=== PATIENT | female | born 1945 | race Caucasian/White ===

== ENCOUNTER → 2017-01-29 | Outpatient (CLI) | payer MEDICARE, BC ==
[~2017-01-29] MED LIST: AMLO5TAB66 PO; DIPH25CA84 PO; FEXO180T56 PO; IBUP-1324 PO; LEVO125T70 PO
--- NOTE | 2017-01-29 13:05 | DI ---
Indication: ITS.REASON: M25.561 Pain in right knee; M25.562 Pain in left knee PROCEDURE: KNEE BILAT 3 VIEWS: Encounter: Initial Comparison: None Findings: Right knee: No acute fracture or dislocation. Mild medial compartment joint space narrowing with osteophyte formation. No joint effusion. Patellofemoral compartment osteophytes. Loose body in the anterior joint recess. Mild patellofemoral compartment joint space loss. Left knee: No acute fracture or dislocation. Mild to moderate medial compartment joint space narrowing with tricompartmental osteophyte formation. No joint effusion. Impression: Right knee: Mild osteoarthritis. Left knee: Mild to moderate osteoarthritis. .
== END ==
LOC: IMA 11:35
PROVIDERS: ATTEND Family Medicine
DX: M17.0 Bilateral primary osteoarthritis of knee (principal); M25.561 Pain in right knee; M25.562 Pain in left knee

== ENCOUNTER 2017-08-13 06:51 | Inpatient (IN) ==
[~2017-08-13 06:51] MED LIST changes: +ACETAMINOPHEN 500 MG TABLET PO ONE; -AMLO5TAB66 PO; +DEXAMETHASONE 4 MG/ML INJECTION IVP ONE; -DIPH25CA84 PO; +FAMOTIDINE PB 20 MG/50 ML BAG IV ONE; -FEXO180T56 PO; -IBUP-1324 PO; -LEVO125T70 PO; +LIDOCAINE 1% (10mg/ml) 2mL INJ PF SDV ID ONE; +METOCLOPRAMIDE 10mg/2ml INJECTION IVP ONE; +NOZIN NASAL SWAB NAS ONE; +NS 1,000 ML IV SCH; +ONDANSETRON 4 MG/2 ML INJECTION IVP ONE; +TRANEXAMIC ACID 1,000 MG in NS 100 ML IV ONE
[2017-08-13] MEDS ORDERED: TRANEXAMIC ACID 1,000 MG in NS 100 ML IV ONE (07:00)
[2017-08-13 07:08] VITALS: BMI 29.0
[2017-08-13] MEDS ORDERED: EPINEPHrine 0.25 MG, BUPIVACAINE 0.25% PF 30 ML, MORPHINE SULFATE 15 MG, KETOROLAC INJ ... OPSITE ONE (08:00)
--- NOTE | 2017-08-13 08:42 | Anesthesia Preoperative Report ---
Anesthesia Preoperative Record - Date and Time Date: 08/13/17 Preoperative Diagnosis: RT TKA M17.11 NPO Since Date: 08/12/17 NPO Since Time: 18:30 Allergies/Adverse Reactions: Allergies Allergy/AdvReac Type Severity Reaction Status Date / Time procaine Allergy Mild fingers Verified 08/13/17 07:18 numb lisinopril AdvReac Mild cough Verified 08/13/17 07:18 meperidine AdvReac Mild n&v Verified 08/13/17 07:18 propoxyphene AdvReac Mild N&V Verified 08/13/17 07:18 codeine AdvReac Unknown hyperactive Verified 08/13/17 07:18 ether Allergy Severe heart stops Uncoded 08/13/17 07:18 BANANAS AdvReac Mild CAUSES Uncoded 08/13/17 07:18 VOMITING - Vital Signs Vital Signs: Temperature 98.4 F 08/13/17 07:08 Pulse Rate 65 08/13/17 07:08 Respiratory Rate 19 08/13/17 07:08 Blood Pressure 204/86 H 08/13/17 07:08 Pulse Oximetry 95 08/13/17 07:08 Height and Weight: Height 1.69 m Weight 83 kg Body Mass Index 29.0 - Medications Inpatient Medications: Current Medications Cefazolin Sodium (Kefzol) 2 g IVP PREOP ONE Stop: 08/13/17 09:31 Sodium Chloride (Normal Saline) 1,000 mls @ 50 mls/hr IV .Q20H THO Last Admin: 08/13/17 07:30 Dose: 50 mls/hr Epinephrine HCl 0.25 mg/Bupivacaine HCl 30 ml/Morphine Sulfate 15 mg/Ketorolac Tromethamine 60 mg/Sodium Chloride 65.25 mls @ 1 mls/hr OPSITE INTRAOP ONE PRN Reason: Protocol Stop: 08/16/17 01:14 Sodium Chloride (Iv Flush) 10 - 80 ml IV PRN PRN PRN Reason: Flushing Home Medications: Home Medications Medication Instructions Recorded Confirmed Type Amlodipine Besylate 5 mg PO DAILY #0 03/08/09 08/13/17 History Ibuprofen [Motrin Ib] 200 - 600 mg PO Q6H PRN #0 03/08/09 08/13/17 History Aspirin/Acetaminophen/Caffeine 2 each PO BID PRN 07/15/17 08/13/17 History [Excedrin Migraine Caplet] Fexofenadine [Clarisa] 180 mg PO DAILY 07/15/17 08/13/17 History Glucosa Stacy 2Kcl/Chondroitin Stacy 1 each PO DAILY 07/15/17 08/13/17 History [Glucosamine Chondroitin Caplet] ascorbic acid (vitamin C) ER 500 500 mg PO DAILY cap 07/15/17 08/13/17 History mg capsule,extended release levothyroxine 125 mcg tablet 125 mcg PO DAILY tab 07/15/17 08/13/17 History multivitamin tablet 1 tab PO DAILY tab 07/15/17 08/13/17 History omega-3 fatty acids 1,000 mg 1,000 mg PO DAILY 07/15/17 08/13/17 History capsule Is Patient on Beta Jake?: No - Medical History Cardiovascular: Reports: Hypertension Neuro/Musculoskeletal: Reports: Headaches (migraines) - Surgical History HEENT Surgeries: Reports: Tonsillectomy (attempted as child, aborted because she coded-ether), Other (xray therapy to neck to treat tonsilitis) Endocrine Surgery/Treatments: Reports: Thyroidectomy (and parathyroidectomy for CA) GI Surgery/Treatments: Reports: Colonoscopy (polyps) Anesthesia Reactions: Other (Alzheimer like symptom for a few weeks after colonoscopy) Hx Family Anesthesia Reaction: No History of Motion Sickness: No - Social History Smoking Status: Never smoker Hx Chewing Tobacco Use: No Second Hand Exposure: No Substance Use Type: does not use Alcohol Intake Frequency: does not drink - Pertinent Findings Laboratory: CBC and BMP 08/13/17 07:17 BMP 08/13/17 07:17 Sodium 144 Potassium 4.3 Chloride 109 H Carbon Dioxide 24 BUN 21.0 H Creatinine 1.0 Glucose 99 Calcium 10.1 EKG: Sinus Rhythm - Physical Exam Respiratory Exam: Present: lungs clear Cardiovascular Exam: Present: regular rate and rhythm - Airway Assessment Mallampati Score: II TMD: 3 Fingerbreadths Neck Extension: fair Teeth: other (poor mouth opening. Stated problems opening mouth d/t jaw problems on left. Has locked up before. ) Overall Assessment: other (poor mouth opening.) - ASA ASA Score: 2 - Plan Plan: SAB vs GA with adductor canal block Anesthesia: General TIVA, General Inhalation Gases, Neuroaxial Peripheral Nerve Block: Saphenous-Right - Discussion Discussion: Discussed risks/options/alternatives of anesthesia and questions answered. Patient consents. Nursing pain assessment noted. Attestation Statement: Prior to the delivery of any anesthetic medication, I examined the patient, developed the plan, obtained the patient's consent and discussed the risk and benefits of the procedure with the patient/guardian. - Additional Information Seen by Anesthesia: Yes
[2017-08-13] MEDS ORDERED: PROPOFOL 500 MG/50 ML VIAL IV ONE ×2 (08:51→10:55)
[2017-08-13] MEDS ORDERED: FentaNYL 100 MCG/2 ML INJECTION ONE (08:51)
[2017-08-13] MEDS ORDERED: MIDAZOLAM 2mg/2ml INJECTION ONE (08:51)
[2017-08-13] MEDS ORDERED: VANCOMYCIN 1,000 MG INJECTION ONE (09:06)
[2017-08-13] MEDS ORDERED: SALINE FLUSH 10ml SYRINGE ONE (09:27)
[2017-08-13] MEDS ORDERED: CEFAZOLIN 1 G INJECTION IVP ONE (09:30)
[2017-08-13] MEDS ORDERED: HYDROMORPHONE 2 MG/ML INJECTION IVP PRN (10:08)
[2017-08-13] MEDS ORDERED: ONDANSETRON 4 MG/2 ML INJECTION IVP PRN ×2 (10:08→12:11)
[2017-08-13] MEDS ORDERED: ROPIVACAINE 0.5% (5mg/ml) 30ml INJ ONE (10:09)
[2017-08-13] MEDS ORDERED: LR 1,000 ML IV SCH (10:15)
[2017-08-13] MEDS ORDERED: VANCOMYCIN 1,000 MG INJECTION IAR ONE (10:50)
--- NOTE | 2017-08-13 11:02 | Operative Note ---
- Procedure Preoperative Diagnosis: Right knee primary degenerative joint disease Postoperative Diagnosis: Same as preoperative diagnosis. Surgeon: Seamus Moon MD Street Roller Engineer: Jono White Complications: None. Anesthesia: Spinal. Estimated Blood Loss: See Anesthesia Record. Fluids: Please see Anesthesia Record. Description of Procedure: Mrs. Ramsey and her right knee were identified and marked in the preoperative holding area. She was brought back to the operating suite after a saphenous nerve block was placed in the preoperative holding area. Spinal anesthetic was administered and she was placed supine on the operating table. The right lower extremity was prepped and draped in my normal sterile fashion. Timeout was performed. The nvite robot was used during the surgery. She had a correctable varus deformity with no flexion contracture. A standard anterior midline incision followed by medial parapatellar arthrotomy was performed. Anterior fat pad and meniscus were removed. The patella was resurfaced to a size 29. She had significant arthritic changes in both patellofemoral and the medial compartment. A tibial array was placed in the most inferior aspect of the incision medial to the tubercle. I then placed a second femoral array again using bicortical pins in the distal femoral metaphysis medially. Checkpoints were then placed both in the femur and the tibia. The bone was then registered with the nvite robot. Osteophytes were removed and gaps were captured both 90 and 0 with correction. She hyperextended it was loose in extension according to the software so we dropped the femur distally 3 mm. We internally rotated the femur 1 was still 4 external rotated compared to the posterior condylar axis. This gave her 80 mm gaps throughout. The nvite robotic arm was then used to assist with the bone cuts. Posterior osteophytes and remaining meniscus were removed. Trial components were placed. We used a 4 femur and a 3 tibia with a allowed mm spacer. She tracked well and was well balanced throughout range of motion. The leg was exsanguinated and the tourniquet inflated to 250 mmHg. The bone was prepared for cementing and components were cemented into place and allowed to cure in extension. The tourniquet was let down and hemostasis obtained with electrocautery. The knee was ranged one more time to ensure good stability, balance and patellar tracking. 1 g of vancomycin powder was then placed into the knee joint. The capsulotomy was then closed with #1 Vicryl. I then left my actuarial assistant to close the subcutaneous tissue with 2-0 Vicryl. Running 4-0 Monocryl will be used in the subcuticular layer. Dermabond will be used on the skin followed by sterile dressing. After drapes are removed patient will be taken to recovery room under the care of anesthesia.
--- NOTE | 2017-08-13 11:43 | Anesthesia Procedure Note ---
Peripheral Nerve Blockade - Procedure Physician: Kehinde Moon MD Date: 08/13/17 Discussion: Discussed risks/options/alternatives of anesthesia and questions answered. Patient consents. Nursing pain assessment noted. Block Start: 11:36 Block Stop: 11:37 Blocked Employed: Adductor Canal, Single Injection Indication: Post-Operative Pain Approach: Right Side Confirmed Position: Supine Patient: Consent, Risks/Benefits Discussed, Informed IV Sedation: No (post op) Initial Vital Signs: Temperature 98.4 F 08/13/17 07:08 Temperature Source Oral 08/13/17 07:08 Pulse Rate 65 08/13/17 07:08 Respiratory Rate 19 08/13/17 07:08 Blood Pressure 204/86 H 08/13/17 07:08 Blood Pressure Mean 125 08/13/17 07:08 Blood Pressure Position Sitting 08/13/17 07:08 Pulse Oximetry 95 08/13/17 07:08 Oxygen Delivery Method 08/13/17 07:08 Post Vital Signs: Temperature 98.4 F 08/13/17 07:08 Pulse Rate 65 08/13/17 07:08 Respiratory Rate 19 08/13/17 07:08 Blood Pressure 204/86 H 08/13/17 07:08 Pulse Oximetry 95 08/13/17 07:08 Prep: Chlorhexadine/ETOH, Sterile Technique Ultrasound Used?: Yes - Nerve Simulator Needle Depth: 3 Muscle Response: No - Injectate Ropivacaine (%): 0.5 Ropivacaine (mL): 15 Was Epi 1:200,000 Used?: No Injection: Injection made incrementally with constant monitoring and aspiration every 5 ml
--- NOTE | 2017-08-13 11:58 | Anesthesia Postoperative Note ---
- Date and Time Date: 08/13/17 Time: 11:58 - Status Patient Participated in Evaluation: Patient Participated in Person Vital Signs: Temperature 97 F 08/13/17 11:30 Pulse Rate 53 L 08/13/17 11:55 Respiratory Rate 18 08/13/17 11:55 Blood Pressure 138/65 08/13/17 11:55 Pulse Oximetry 98 08/13/17 11:55 Respiratory Function: Airway Patent, Regular Respirations Cardiovascular Function: Regular Pulse Mental Status: Alert and Oriented Pain Intensity: 0 Hydration: IV Infusing Complications During Recover: None Apparent Post Anesthesia Care Notes: moves lower extremeties - Follow-Up Instructions Instructions: Per Surgeon
[2017-08-13] MEDS ORDERED: NOZIN NASAL SWAB NAS ONE (12:11)
[2017-08-13] MEDS ORDERED: LORazepam 1 MG TABLET PO PRN (12:11)
[2017-08-13] MEDS ORDERED: DiphenhydrAMINE 25 MG CAPSULE PO PRN (12:11)
[2017-08-13] MEDS ORDERED: DiphenhydrAMINE 50 MG/ML INJECTION IVP PRN (12:11)
[2017-08-13] MEDS: AMLODIPINE 5 MG TABLET PO SCH (12:13)
[2017-08-13] MEDS: FEXOFENADINE 180 MG TABLET PO SCH (12:13)
[2017-08-13] MEDS: LEVOTHYROXINE 125 MCG TABLET PO SCH (12:14)
[2017-08-13] MEDS: POLYETHYL GLYCOL 3350 17gm PACKET PO SCH (12:18)
[2017-08-13] MEDS: DOCUSATE SODIUM 100 MG CAPSULE PO SCH ×2 (12:24→21:15)
[2017-08-13] MEDS: ACETAMINOPHEN 325 MG TABLET PO SCH ×4 (12:24→21:14)
[2017-08-13] MEDS: NS 1,000 ML IV SCH (12:24)
--- NOTE | 2017-08-13 12:34 | XRay Report ---
Indication: postoperative image PROCEDURE: XR knee RT 2V: Encounter: Initial Comparison: CT dated July 23, 2017 Findings: Postoperative changes of right total knee replacement are seen. There is expected postoperative subcutaneous gas. No evidence of hardware failure or acute fracture. No retained radiopaque surgical instruments or sponges. Overlying material causing artifact. Impression: New right total knee prosthesis without evidence of immediate complication. .
[2017-08-13] MEDS ORDERED: FALL RISK - PHARMACY CONSULT MC ONE (12:41)
[2017-08-13] MEDS: ASCORBIC ACID 500 MG TABLET PO SCH (13:18)
[2017-08-13] MEDS: OMEGA-3 ACID ESTERS 1 GM CAPSULE PO SCH (13:18)
[2017-08-13] MEDS: NOZIN NASAL SWAB NAS SCH ×2 (13:19→21:14)
[2017-08-13] MEDS: TRAMADOL 50 MG TABLET PO PRN (14:54)
[2017-08-13] MEDS ORDERED: INFLUENZA VAC High Dose 2017-18 (Fluzone HD*) (>=65yo) 0.5ml IM ONE (15:38)
[2017-08-13] MEDS ORDERED: INFLUENZA VAC. INJ. ADMIN CHARGE INJ ONE (16:00)
[2017-08-13] MEDS ORDERED: SALINE FLUSH 10ml SYRINGE IV PRN (16:19)
[2017-08-13] MEDS: CEFAZOLIN 2 G in NS 100 ML IV SCH (16:48)
--- NOTE | 2017-08-13 18:18 | Consult Note ---
<Marleni Morris - Last Filed: 08/13/17 18:13> Consult Information - Data of Consult Consult date: 08/13/17 Requesting Physician: Kehinde Moon MD Primary Care Provider: Samina Huston DO Family Provider: Samina Huston DO - Consult Narrative Reason for consult: Hypertension, S/P rigth TKA History of present illness: Alisa Ramsey is a very pleasant 72-year-old female with a history of right knee pain, degenerative joint disease and osteoarthritis underwent an elective right total knee arthroplasty by Dr. Moon today, 08/13/17. Following the surgery, she was noted to be hypertensive with an average systolic blood pressure in the 170's. She has a known history of hypertension for which she takes amlodipine 5mg daily. She reports that she took her medication as directed this morning prior to surgery. Review of vital signs reveals current blood pressure of 179/75 and afebrile. Heart rate has been primarily bradycardiac, between 43-75. She admits to a history of "low heart rate", typically in the low 60's. Currently she admits to right knee pain at 2/10. She denies any other complaints or concerns. No chest pain, shortness of breath , abdominal pain, nausea, vomiting, dysuria, headache or changes in vision. She denies any recent illness or fevers. She states that her blood pressure is usually very well controlled with her medication. She does admit that in the past, during a period of increased stress, her PCP, Dr. Wheeler, had encouraged her to take amlodipine 5mg in the morning and amlodipine 2.5mg in the evening but since the resolution of her "stress" she has only been taking her amlodipine 5mg in the AM and was obtaining good blood pressure control. She does have a past history of reactions to anesthesia including "brain fog" following her colonoscopy in 2011. Due to her persistent hypertension, the hospitalist service was consulted for medical management and further evaluation and treatment. On exam, she is seen while resting in bed, with her daughter and at the bed side. She is alert and orientated x 3 and in no apparent distress. Cardiac exam reveals bradycardia with regular rate and rhythm. Lungs are clear to auscultation. Abdomen is soft, nontender with active bowel sounds. She admits to passing gas since the surgery. Trace edema noted to bilateral lower extremities. SCDs in place bilaterally. Polar ice-pack noted to right knee and was not removed for evaluation of surgical site. [facility] Patient Stated Medical History Hypertension. Secondary hypothyroid due to previous thyroid cancer and thyroidectomy. History of migraines. Seasonal allergic rhinitis. Diverticulosis. History of anemia as a child. Osteoarthritis. Degenerative joint disease. Prior reaction to anesthesia. Surgical History: Colonoscopy with polypectomy and diverticulosis noted - 2008. EGD - 2008. Attempted tonsillectomy - ether was used for anesthesia causing patient's heart to stop as a result of that ether anesthetic. The operation was cancelled when this occurred. 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 The patient states that she did have x-ray treatment of her tonsils as a child which was thought to have led to the thyroid carcinoma - 04/23/1978 (Dr. Powers). Family History: Family History Mother Thyroid disease Stroke Heart attack Diabetes COPD (chronic obstructive pulmonary disease) Arthritis Maternal Grandmother Stroke Paternal Grandmother Colon cancer Father Enlarged heart. - Social History Smoking status: Never smoker Substance use type: does not use Alcohol intake frequency: does not drink Housing: house Household members: spouse service: No Current occupational status: retired Does patient use chewing tobacco?: No Current residence: Apartment/Private Home Social history: PCP - Dr. Wheeler. Review of Systems All systems PM: 10-point ROS was reviewed, no additional remarkable complaints except - Constitutional Constitutional: Absent: chills, fatigue, fever(s), headache(s), weakness - EENMT Eyes: Absent: blurry vision, change in vision, loss of vision, photophobia Ears: Absent: ear pain Balance: Absent: vertigo, falling to one side Nose: Absent: nosebleeds Mouth/Throat: Absent: sore throat, changes in swallowing - Cardiovascular Cardiovascular: Absent: chest pain, palpitations, syncope, dyspnea on exertion, orthopnea, edema Vascular: Absent: pedal edema - Respiratory Respiratory: Absent: cough, dyspnea, hemoptysis, dyspnea on exertion, wheezing, pain on inspiration - Gastrointestinal Gastrointestinal: Absent: abdominal pain, constipation, diarrhea, hematochezia, melena, nausea, vomiting - Genitourinary Genitourinary: Absent: abnormal menses, dysuria, hematuria Menstruation: post menopausal - Musculoskeletal Musculoskeletal: Present: limited range of motion (right knee secondary to recent surgery and pain.). Absent: back pain, deformity, muscle weakness - Integumentary/Breasts Integumentary: Absent: erythema, rash, jaundice - Neurological Neurological: Absent: confusion, convulsions, dizziness, focal weakness, headache(s), lack of coordination, memory loss, weakness - Psychiatric Psychiatric: Present: anxiety (white coat syndrome) - Endocrine Endocrine: Absent: palpitations - Hematologic/Lymphatic Hematologic/Lymphatic: Absent: easy bruising - Allergic/Immunologic Allergic/Immunologic: Present: seasonal rhinorrhea Medications Home Medications Medication Instructions Recorded Confirmed Type Amlodipine Besylate 5 mg PO DAILY #0 03/08/09 08/13/17 History Ibuprofen [Motrin Ib] 200 - 600 mg PO Q6H PRN #0 03/08/09 08/13/17 History Aspirin/Acetaminophen/Caffeine 2 each PO BID PRN 07/15/17 08/13/17 History [Excedrin Migraine Caplet] Fexofenadine [Clarisa] 180 mg PO DAILY 07/15/17 08/13/17 History Glucosa Stacy 2Kcl/Chondroitin Stacy 1 each PO DAILY 07/15/17 08/13/17 History [Glucosamine Chondroitin Caplet] ascorbic acid (vitamin C) ER 500 500 mg PO DAILY cap 07/15/17 08/13/17 History mg capsule,extended release levothyroxine 125 mcg tablet 125 mcg PO DAILY tab 07/15/17 08/13/17 History multivitamin tablet 1 tab PO DAILY tab 07/15/17 08/13/17 History omega-3 fatty acids 1,000 mg 1,000 mg PO DAILY 07/15/17 08/13/17 History capsule Allergies Allergy/AdvReac Type Severity Reaction Status Date / Time procaine Allergy Mild fingers Verified 08/13/17 07:18 numb lisinopril AdvReac Mild cough Verified 08/13/17 07:18 meperidine AdvReac Mild n&v Verified 08/13/17 07:18 propoxyphene AdvReac Mild N&V Verified 08/13/17 07:18 codeine AdvReac Unknown hyperactive Verified 08/13/17 07:18 ether Allergy Severe heart stops Uncoded 08/13/17 07:18 BANANAS AdvReac Mild CAUSES Uncoded 08/13/17 07:18 VOMITING Exam Vital Signs: Temperature 97.8 F 08/13/17 12:12 Pulse Rate 57 L 08/13/17 17:56 Respiratory Rate 14 08/13/17 12:51 Blood Pressure 183/82 H 08/13/17 17:43 Pulse Oximetry 99 08/13/17 17:43 Telemetry Rhythm: Sinus Rhythm Height/Weight/BMI: Height 5 ft 6.5 in Weight 182 lb 15.739 oz Body Mass Index 29.0 - Constitutional Present: no acute distress, well nourished, well developed, obese, cooperative - Routine HEENT Exam Head: Present: normocephalic, atraumatic Eye: Present: PERRL. Absent: conjunctival icterus ENT: Present: mucous membranes moist, dentition normal - Routine Neck Exam Present: supple, full ROM, trachea midline - Routine Chest/Breast/Axilla Exam Chest wall: Absent: pacemaker - Routine Respiratory Exam Present: CTA bilaterally. Absent: dyspnea, rhonchi, stridor, wheezes, crackles - Routine Cardiovascular Exam Present: RRR, S1, S2, bradycardia - Routine Abdominal Exam Present: soft, normoactive bowel sounds, non distended, non tender - Routine Extremities Exam Present: edema (trace bilateral lower extremities), pulses intact. Absent: calf tenderness Comments: polar pack noted to right knee; SCDs in place bilaterally. - Routine Back/Spine/Pelvis Exam Back/Spine: Present: full ROM - Routine Skin Exam Present: dry, warm. Absent: jaundice Comments: afebrile. - Routine Neurological Exam Present: alert, oriented X3, CN II-XII intact, moving all extremities, hearing grossly intact, normal speech. Absent: hemineglect, facial asymmetry - Routine Psychiatric Exam Present: normal affect, cooperative, good insight, good judgment Results - Labs CBC & Chem 7: 08/13/17 07:17 - Impressions Date of Exam: 08/13/17 Indication: postoperative image Findings: Postoperative changes of right total knee replacement are seen. There is expected postoperative subcutaneous gas. No evidence of hardware failure or acute fracture. No retained radiopaque surgical instruments or sponges. Overlying material causing artifact. Impression: New right total knee prosthesis without evidence of immediate complication. Assessment and Plan (1) Status post total knee replacement, right Current visit: Yes Status: Acute Right TKA by Dr. Moon on 08/13/17. (2) Hypertension Current visit: No Status: Chronic (3) Chronic renal disease, stage 3, moderately decreased glomerular filtration rate between 30-59 mL/min/1.73 square meter Current visit: Yes Status: Chronic GFR 54 on 08/13/17. (4) Seasonal allergic rhinitis Current visit: Yes Status: Chronic DVT Prophylaxis: SCD's GI Prophylaxis: Protonix Resuscitation Status: Full Code Assessment and Plan: 72-year-old female with uncontrolled hypertension s/p right TKA by Dr. Moon on 08/13/17. Home treatment includes amlodipine 5mg daily. Assessment S/P elective right total knee arthroplasty by Dr. Moon on 08/13/17. Hypertension, uncontrolled following surgery. Secondary hypothyroidism due to history of thyroid cancer and prior thyroidectomy. Chronic renal disease, stage III, GFR 54 on admission. Seasonal allergic rhinitis. Plan-08/13 (consult) Continue pain control and therapy per Dr. Moon. Continue to encourage bowel motivation. Uncontrolled hypertension noted following surgery with systolic pressure averaging 170's. Patient reports taking home amlodipine 5mg this morning prior to surgery. Bradycardia also noted with heart rate ranging between 43-75. Will monitor closely on telemetry. Give additional dose of amlodipine 5mg now. Hydralazine 10mg IV PRN hypertension. Continue NS 80cc/hr for gentle hydration. Monitor closely for signs of fluid overload. Monitor daily weight. Avoid NSAID treatment given chronic renal disease. Continue home medications for allergic rhinitis. Upon discharge, patient's care will be returned to her PCP, Dr. Wheeler. - Time spent with patient Time with patient PN: 70 minutes Hospital Course Summary Disclaimer: The visit summary below is not to be considered part of the above Progress Note. Hospital Course: Plan-08/13 (consult) Continue pain control and therapy per Dr. Moon. Continue to encourage bowel motivation. Uncontrolled hypertension noted following surgery with systolic pressure averaging 170's. Patient reports taking home amlodipine 5mg this morning prior to surgery. Bradycardia also noted with heart rate ranging between 43-75. Will monitor closely on telemetry. Give additional dose of amlodipine 5mg now. Hydralazine 10mg IV PRN hypertension. Continue NS 80cc/hr for gentle hydration. Monitor closely for signs of fluid overload. Monitor daily weight. Avoid NSAID treatment given chronic renal disease. Continue home medications for allergic rhinitis. Upon discharge, patient's care will be returned to her PCP, Dr. Wheeler. <Mandi Berry - Last Filed: 08/13/17 22:05> Consult Information - Data of Consult Requesting Physician: Kehinde Moon MD Primary Care Provider: Samina Huston DO Family Provider: Samina Huston DO [facility] Family History: Family History (Last Reviewed 07/15/17 @ 16:09 by Kehinde Moon MD) Mother Thyroid disease Stroke Heart attack Diabetes COPD (chronic obstructive pulmonary disease) Arthritis Maternal Grandmother Stroke Paternal Grandmother Colon cancer Father Enlarged heart Exam Vital Signs: Temperature 97.9 F 08/13/17 20:00 Pulse Rate 64 08/13/17 20:00 Respiratory Rate 16 08/13/17 20:22 Blood Pressure 191/83 H 08/13/17 20:00 Pulse Oximetry 95 08/13/17 20:00 Height/Weight/BMI: Height 1.69 m Weight 83 kg Body Mass Index 29.0 Results - Labs CBC & Chem 7: 08/13/17 07:17 Assessment and Plan (1) Hypertension Current visit: No Status: Chronic (2) Status post total knee replacement, right Current visit: Yes Status: Acute (3) Chronic renal disease, stage 3, moderately decreased glomerular filtration rate between 30-59 mL/min/1.73 square meter Current visit: Yes Status: Chronic Assessment and Plan: I have independently evaluated and examined this patient. I reviewed the chart, the patient's history, and the CAFETERIA COOK/PA's documented findings as above. We discussed and formulated the assessment and plan as above with additions as below: Mrs. Ramsey underwent elective right TKA earlier today. She monitors her blood pressure at home several times a week indicating that it typically runs about 120/60. Blood pressure was elevated preoperatively and has remained elevated postoperatively. Patient denies any symptoms including headache, chest pain, palpitations, or dyspnea. Had she not been told her pressure was elevated she would have no awareness of the change from baseline. She complains of some mild discomfort in her knee comparable to preoperative pain has been able to ambulate with assistance. NAD, alert, fluent speech MAEW, sensation intact 4 extremities Respirations nonlabored, clear breath sounds, good airflow Regular rhythm, S1-S2 Abdomen soft, nontender Uncontrolled perioperative hypertension-additional amlodipine given postoperatively and IV prn hydralazine ordered. Given baseline blood pressures described do not believe additional oral medications needed at this time but will reassess over the next 24 hours. Intermittent bradycardia-patient reports this is chronic-precludes use of labetalol. Preop hemoglobin 14.8, creatinine 1.34 with GFR 39; LDL 178; EKG with sinus bradycardia and nonspecific ST/T-wave abnormality by my review. Preop labs obtained 07/23/17. Discussed with nursing. Hospital Course Summary Disclaimer: The visit summary below is not to be considered part of the above Progress Note.
[2017-08-13] MEDS ORDERED: AMLODIPINE 5 MG TABLET PO ONE (19:01)
[2017-08-13] MEDS ORDERED: HYDRALAZINE 20 MG/ML INJECTION IVP PRN ×2 (19:01→21:51)
[2017-08-13] MEDS ORDERED: SENNOSIDES 8.6 MG TABLET PO SCH (21:00)
[2017-08-13] MEDS: ASPIRIN *EC* 81 MG TABLET PO SCH (21:15)
[2017-08-14] MEDS: CEFAZOLIN 2 G in NS 100 ML IV SCH (00:21)
[2017-08-14] MEDS: NS 1,000 ML IV SCH (02:44)
[2017-08-14] MEDS: NOZIN NASAL SWAB NAS SCH ×2 (06:03→15:15)
[2017-08-14 07:34] VITALS: RESP 16
[2017-08-14] MEDS: ACETAMINOPHEN 325 MG TABLET PO SCH ×2 (08:04→12:43)
[2017-08-14] MEDS: ASCORBIC ACID 500 MG TABLET PO SCH (08:04)
[2017-08-14] MEDS: OMEGA-3 ACID ESTERS 1 GM CAPSULE PO SCH (08:04)
[2017-08-14] MEDS: FEXOFENADINE 180 MG TABLET PO SCH (08:04)
[2017-08-14] MEDS: POLYETHYL GLYCOL 3350 17gm PACKET PO SCH (08:04)
[2017-08-14] MEDS ORDERED: SENNOSIDES 8.6 MG TABLET PO PRN (08:05)
[2017-08-14] MEDS: ASPIRIN *EC* 81 MG TABLET PO SCH (08:05)
[2017-08-14] MEDS: DOCUSATE SODIUM 100 MG CAPSULE PO SCH (08:05)
[2017-08-14] MEDS: AMLODIPINE 5 MG TABLET PO SCH (08:05)
[2017-08-14] MEDS: LEVOTHYROXINE 125 MCG TABLET PO SCH (08:05)
--- NOTE | 2017-08-14 08:13 | Orthopedic Progress Note ---
Date: Subjective/Severity of Illness: Alisa is doing well. She did not sleep well. Her polar pack leaked into her bed and made her quite cold. She has been up with good tolerance. Dressing is dry. BPs improved this AM. Bradycardia and PACs noted overnight. Orthopedic Objective PO Vital signs: Temperature 97.9 F 08/14/17 07:32 Pulse Rate 53 L 08/14/17 07:32 Respiratory Rate 16 08/14/17 07:32 Blood Pressure 168/72 H 08/14/17 07:32 Pulse Oximetry 100 08/14/17 07:32 Height and Weight: Height 5 ft 6.5 in Weight 182 lb 15.739 oz Body Mass Index 29.0 - Constitutional General Appearance: Present: alert, cooperative, no acute distress - Respiratory Exam Present: non-labored - Extremities Exam Extremities: Present: pulses intact, normal capillary refill - Surgical Site Incision: Mepilex dressing intact, no drainage - Integumentary Exam Present: pink, warm, dry - Neurological Exam Present: no deficits - Psychiatric Exam Present: alert, normal affect - Labs Result Diagrams: 08/14/17 04:12 08/14/17 04:12 Abnormal lab results 08/14/17 08/14/17 Range/Units 04:12 04:12 Hgb 11.9 L (12-16) GM/DL Hct 35.6 L (36-46) % MPV 8.9 L (9.4-12.4) UM3 Chloride 108 H (98-107) MEQ/L BUN 20.0 H (7-17) MG/DL H & H 08/14/17 Range/Units 04:12 Hgb 11.9 L (12-16) GM/DL Hct 35.6 L (36-46) % Orthopedic Assessment and Plan (1) Primary osteoarthritis of right knee Status: Acute Assessment and Plan: Current anti-coagulation protocol for VTE prophylaxis. SCD's. Had some HTN yesterday that was treated by the hospitalist. Bradycardia and PACs noted overnight. Will be addressed by hospitalist today. PT/OT services to improve independent function. Discharge Planning per Case Management. (2) Chronic renal disease, stage 3, moderately decreased glomerular filtration rate between 30-59 mL/min/1.73 square meter Status: Chronic Assessment and Plan: CKD. Stable and slightly improved with IVF. - Anticoagulation Therapy Anticoagulation: other (ASA 81mg BID.) Hospital Course Summary Disclaimer: The visit summary below is not to be considered part of the above Progress Note. Hospital Course: Plan-08/13 (consult) Continue pain control and therapy per Dr. Moon. Continue to encourage bowel motivation. Uncontrolled hypertension noted following surgery with systolic pressure averaging 170's. Patient reports taking home amlodipine 5mg this morning prior to surgery. Bradycardia also noted with heart rate ranging between 43-75. Will monitor closely on telemetry. Give additional dose of amlodipine 5mg now. Hydralazine 10mg IV PRN hypertension. Continue NS 80cc/hr for gentle hydration. Monitor closely for signs of fluid overload. Monitor daily weight. Avoid NSAID treatment given chronic renal disease. Continue home medications for allergic rhinitis. Upon discharge, patient's care will be returned to her PCP, Dr. Wheeler.
[2017-08-14] MEDS ORDERED: CEFAZOLIN 1 G INJECTION IVP ONE (09:30)
[2017-08-14 09:38] VITALS: PULSE 63
[2017-08-14] MEDS: TRAMADOL 50 MG TABLET PO PRN (10:46)
[2017-08-14 11:54] VITALS: BP 149/80; TEMP 98.1; O2SAT 99
--- NOTE | 2017-08-14 12:50 | Progress Note ---
<AmeliaFrancia D - Last Filed: 08/14/17 13:00> Subjective: Alisa is doing well today. Her knee pain is tolerable and she states that she passed all the PT "tests" and has been cleared to go home. Her BP is still higher than baseline (120/60), but improved from yesterday. She notes that it tends to increase when she's stressed. She has a BP cuff at home and intends on monitoring it there. She also reports hx of low HR - typically runs low 60s at baseline. She denies palpitations, chest pain, or dyspnea. No abdominal pain, nausea, or bloating. Objective Vital signs: Temperature 98.1 F 08/14/17 11:53 Pulse Rate 63 08/14/17 11:53 Respiratory Rate 16 08/14/17 11:53 Blood Pressure 149/80 H 08/14/17 11:53 Pulse Oximetry 99 08/14/17 11:53 Height/Weight/BMI: Height 1.69 m Weight 83 kg Body Mass Index 29.0 - Constitutional Present: no acute distress, well nourished, well developed - Routine HEENT Exam Eye: Absent: conjunctival icterus ENT: Present: oropharynx clear - Routine Respiratory Exam Present: CTA bilaterally - Routine Cardiovascular Exam Present: RRR, S1, S2 - Routine Abdominal Exam Present: soft, normoactive bowel sounds, non distended, non tender - Routine Extremities Exam Present: no edema - Routine Musculoskeletal Exam Musculoskeletal: Present: other (polar pack to right knee) - Routine Skin Exam Present: intact, dry, warm - Routine Neurological Exam Present: alert, oriented X3, CN II-XII intact - Routine Psychiatric Exam Present: normal affect, normal thought process, cooperative Results - Labs CBC & Chem 7: 08/14/17 04:12 08/14/17 04:12 Assessment and Plan (1) Hypertension Status: Chronic (2) Status post total knee replacement, right Status: Acute Right TKA by Dr. Moon on 08/13/17. (3) Chronic renal disease, stage 3, moderately decreased glomerular filtration rate between 30-59 mL/min/1.73 square meter Status: Chronic GFR 54 on 08/13/17. Assessment and Plan: BP still above baseline but improved. She has not received any PRN hydralazine. HR bradycardic at times but she's asymptomatic and tends to run low 60s while awake. Labs are stable. Medically stable for discharge home - recommend to take extra half tab of amlodipine at home if systolic pressures continue to run >160. F/U with Dr. Huston next week to discuss BP trends and treatment. Discussed with Dr. Berry and Jono White. Hospital Course Summary Disclaimer: The visit summary below is not to be considered part of the above Progress Note. Hospital Course: Plan-08/13 (consult) Continue pain control and therapy per Dr. Moon. Continue to encourage bowel motivation. Uncontrolled hypertension noted following surgery with systolic pressure averaging 170's. Patient reports taking home amlodipine 5mg this morning prior to surgery. Bradycardia also noted with heart rate ranging between 43-75. Will monitor closely on telemetry. Give additional dose of amlodipine 5mg now. Hydralazine 10mg IV PRN hypertension. Continue NS 80cc/hr for gentle hydration. Monitor closely for signs of fluid overload. Monitor daily weight. Avoid NSAID treatment given chronic renal disease. Continue home medications for allergic rhinitis. Upon discharge, patient's care will be returned to her PCP, Dr. Wheeler. <Mandi Berry - Last Filed: 08/14/17 16:55> Objective Vital signs: Temperature 98.1 F 08/14/17 11:53 Pulse Rate 63 08/14/17 11:53 Respiratory Rate 16 08/14/17 11:53 Blood Pressure 149/80 H 08/14/17 11:53 Pulse Oximetry 99 08/14/17 11:53 Height/Weight/BMI: Height 1.69 m Weight 83 kg Body Mass Index 29.0 Results - Labs CBC & Chem 7: 08/14/17 04:12 08/14/17 04:12 Assessment and Plan (1) Hypertension Status: Chronic (2) Status post total knee replacement, right Status: Acute (3) Chronic renal disease, stage 3, moderately decreased glomerular filtration rate between 30-59 mL/min/1.73 square meter Status: Chronic Resuscitation Status: Full Code Assessment and Plan: I have independently evaluated and examined this patient. I reviewed the chart, the patient's history, and the TOLL MECHANIC/PA's documented findings as above. We discussed and formulated the assessment and plan as above with additions as below: Mrs. Juarez reports that she continues to do well. She's having minimal pain and has been ambulatory today with PT and nursing. She denies headache, epistaxis, nausea/vomiting. Blood pressures have improved progressively overnight and IV antihypertensives were never required. NAD, alert Respirations nonlabored, breath sounds clear Regular rhythm Minor drop in hemoglobin from preoperative value of 14.8. Blood pressure continues to improve-last value 149/80. Medically stable for discharge-patient will continue to monitor blood pressures regularly and follow up with Dr. Huston in the near future. Hospital Course Summary Disclaimer: The visit summary below is not to be considered part of the above Progress Note.
--- NOTE | 2017-08-14 12:58 | Discharge Instructions ---
Discharge Plan - Med Rec/Dispo Referrals/Follow Up: Kehinde Moon MD [Physician] - 09/04/17 1:45 pm Samina Huston DO [Family Provider] - 1 Week (F/U on elevated BP postoperatively.) Ilya Instructions: [facility] [place] Ortho Postop Instructions Additional Instructions: Monitor BP daily and take an extra 1/2 of tablet of amlodipine at home if your systolic BP is 160 or greater. Follow up with Dr. Huston next week to discuss BP trends and further treatment as indicated. Prescriptions: New Amlodipine [Norvasc] 5 mg PO DAILY tablet Continue Fexofenadine [Clarisa] 180 mg PO DAILY Aspirin/Acetaminophen/Caffeine [Excedrin Migraine Caplet] 2 each PO BID PRN PRN Reason: Migraine Headache Ibuprofen [Motrin Ib] 200 - 600 mg PO Q6H PRN #0 PRN Reason: Pain Glucosa Stacy 2Kcl/Chondroitin Stacy [Glucosamine Chondroitin Caplet] 1 each PO DAILY levothyroxine 125 mcg tablet 125 mcg PO DAILY tab multivitamin tablet 1 tab PO DAILY tab ascorbic acid (vitamin C) ER 500 mg capsule,extended release 500 mg PO DAILY cap omega-3 fatty acids 1,000 mg capsule 1,000 mg PO DAILY Discontinued Amlodipine Besylate 5 mg PO DAILY #0
--- NOTE | 2017-08-14 14:42 | Discharge Summary ---
Orthopedic Discharge Info Date of admission: 08/13/17 06:51 Primary care physician: Samina Huston DO Attending Physician: Kehinde Moon MD Consults: 08/13/17 07:09 Consult to Anesthesiology [CONS] Routine Consulting Provider: JESSICA Uriarte Reason For Exam: Preoperative Assessment 08/13/17 12:11 Case Management Consult [CONS] Routine Reason For Exam: Discharge Planning DME-Walker [CONS] Routine Height: 5 ft 6.5 in Weight: 182 lb 15.739 oz Comment: change dressing in 2 weeks Total Joint Outpatient Therapy [CONS] Routine Comment: change dressing in 2 weeks 08/13/17 16:15 Physician Consult [CONS] Routine Consulting Provider: Mandi Berry Reason For Exam: HTN Ordering Provider has Notified Saw Sharpener: No - Discharge Diagnosis (1) Primary osteoarthritis of right knee Status: Acute (2) Chronic renal disease, stage 3, moderately decreased glomerular filtration rate between 30-59 mL/min/1.73 square meter Status: Chronic - Procedures Procedures: Right TKA - Laboratory Result Diagrams: 08/14/17 04:12 08/14/17 04:12 Laboratory: Abnormal lab results 08/14/17 08/14/17 Range/Units 04:12 04:12 Hgb 11.9 L (12-16) GM/DL Hct 35.6 L (36-46) % MPV 8.9 L (9.4-12.4) UM3 Chloride 108 H (98-107) MEQ/L BUN 20.0 H (7-17) MG/DL H & H 08/14/17 Range/Units 04:12 Hgb 11.9 L (12-16) GM/DL Hct 35.6 L (36-46) % Orthopedic Discharge HPI - HPI Comments This patient was admitted for elective surgical tx of end stage degenerative joint disease that failed to respond to conservative treatment. Further details of this is found in the admission H&P. Orthopedic Hospital Course Hospital course: 08/14/17 14:40 After appropriate preoperative clearance and signing of operative consent, the patient was given IV antibiotics, according to orthopedic protocol. The patient was taken to the operating room and underwent elective joint arthroplasty. Following surgery, antibiotics were discontinued less than 24 hours according to joint protocol. Appropriate anticoagulants were initiated and SCDs added for DVT prevention. The dressing was clean, dry, and intact. Pain control was obtained via multimodal approach. Bowel motivation addressed with scheduled and PRN medications. Early mobilization was initiated through PT services. Discharge arrangements made by a collaborative effort between the patient and Case Management. Alisa developed hypertension post op, as high as 191/83. The hospital service was consulted and they started Amlodipine. Her pressures improved at time of discharge and recommendation for further outpatient follow up with PCP was communicated to the patient. Follow-up is scheduled in 2-3 weeks. Discharge instructions given by orthopedic providers and nursing staff at discharge. Discharge condition was good. 08/14/17 14:41 - Postoperative Anemia patient received IVF, labs monitored daily, no intervention required, HGB drop- acceptable Discharge Plan - Med Rec/Dispo Referrals/Follow Up: Kehinde Moon MD [Physician] - 09/04/17 1:45 pm Samina Huston DO [Family Provider] - 1 Week (F/U on elevated BP postoperatively.) [facility] Instructions: [facility] Postop Instructions Additional Instructions: Monitor BP daily and take an extra 1/2 of tablet of amlodipine at home if your systolic BP is 160 or greater. Follow up with Dr. Huston next week to discuss BP trends and further treatment as indicated. [facility] AT 1:00 PM. THEY WOULD LIKE YOU TO CHECK IN AT 1250. [address], [place] P# . Prescriptions: New Amlodipine [Norvasc] 5 mg PO DAILY tablet Aspirin *EC* [Ecotrin] 81 mg PO BID #84 tab Tramadol [Ultram] 50 - 100 mg PO Q6H PRN #60 tab PRN Reason: Pain Acetaminophen [Tylenol] 650 mg PO QID #100 tab Continue Fexofenadine [Clarisa] 180 mg PO DAILY Aspirin/Acetaminophen/Caffeine [Excedrin Migraine Caplet] 2 each PO BID PRN PRN Reason: Migraine Headache Ibuprofen [Motrin Ib] 200 - 600 mg PO Q6H PRN #0 PRN Reason: Pain Glucosa Stacy 2Kcl/Chondroitin Stacy [Glucosamine Chondroitin Caplet] 1 each PO DAILY levothyroxine 125 mcg tablet 125 mcg PO DAILY tab multivitamin tablet 1 tab PO DAILY tab ascorbic acid (vitamin C) ER 500 mg capsule,extended release 500 mg PO DAILY cap omega-3 fatty acids 1,000 mg capsule 1,000 mg PO DAILY Discontinued Amlodipine Besylate 5 mg PO DAILY #0 - Disposition 01 Discharged Home, Self-Care
[2017-08-15] MEDS ORDERED: BISACODYL 10 MG SUPPOSITORY RECTALLY SCH (20:00)
== END 2017-08-14 15:35 | disposition home or self-care (01) | DRG 470 ==
LOC: SRG 06:51
PROVIDERS: ADMIT Orthopaedic Surgery; ATTEND Orthopaedic Surgery